=== PATIENT | male | born 1935 | race Two or more races ===

== ENCOUNTER 2016-11-17 21:17 | Inpatient (IN) | payer MEDICARE, MEDICAID ==
[~2016-11-17] VITALS: Ht 165.1 cm; Wt 55.3 kg
[~2016-11-17 21:17] MED LIST: DICL50TA9 PO; DIVA125T3 PO; LISI-603 PO; LORA10TA68 PO; MEMA10TA PO; MIRT15TA PO
--- NOTE | 2016-11-17 22:08 | NUR ---
PT LEAH PA FROM [facility] FOR PAINFUL PELVIC MASS. PT AO TO NAME. GEORGIAN SPEAKING. PER EMS BASELINE PT CONFUSED. RR EVEN AND UNLABORED. NO SOB NOTED. NAD NOTED. NO NVD AT THIS TIME. PT GOWNED AND PLACED ON MONITOR WAITING FOR MD MENA.
--- NOTE | 2016-11-17 22:21 | NUR ---
FAMILY AT BEDSIDE TO TRANSLATE.
--- NOTE | 2016-11-17 22:22 | NUR ---
DR. NORIEGA AT BEDSIDE FOR EVAL.
--- NOTE | 2016-11-17 22:25 | NUR ---
CALLED RADIOLOGY TO PAGE US TECH
[2016-11-17] MEDS ORDERED: IV NS 0.9% 500 ML BAG IV ONE (22:30)
[2016-11-17] MEDS ORDERED: IV SET PRIMARY 1 EA INFUS.SET MC ONE (22:38)
[2016-11-17] MEDS ORDERED: IV NS 0.9% 500 ML IV ONE (22:38)
[2016-11-17 22:44] LABS: BASOPHILS % (AUTO) 0.5 % (0.0-2.0); EOSINOPHILS % (AUTO) 0.3 % (0.0-6.0); HEMATOCRIT 39 % (39-51); HEMOGLOBIN 13.1 g/dL (13.5-17.5); LYMPHOCYTES % (AUTO) 11.7 % (20.0-44.0); MEAN CORPUSCULAR HEMOGLOBIN 32 PG (26.0-33.0); MEAN CORPUSCULAR HGB CONC 34 g/dl (31.0-36.0); MEAN CORPUSCULAR VOLUME 94 fL (80-96); MONOCYTES # (AUTO) 0.6 /CMM (0.1-1.30); MONOCYTES % (AUTO) 6.9 % (2.0-12.0); NEUTROPHILS # (AUTO) 6.8 /CMM (1.8-8.9); NEUTROPHILS % (AUTO) 80.6 % (43.0-81.0); PLATELET COUNT (AUTO) 285 /CMM (150-450); RDW COEFFICIENT OF VARIATION 13.2 (11.5-15.0); RED BLOOD CELL COUNT(AUTO) 4.15 MIL/uL (4.5-6.0); WHITE BLOOD COUNT (AUTO) 8.4 K/uL (4.3-11.0)
[2016-11-17 22:55] LABS: CALCIUM, SERUM 8.9 mg/dL (8.5-10.1); CREATININE 0.7 mg/dL (0.6-1.3); POTASSIUM 3.7 mmol/L (3.5-5.1)
[2016-11-17 23:00] LABS: ALBUMIN 2.8 g/dL (3.4-5.0); BILIRUBIN,DIRECT 0.1 mg/dL (0.0-0.2); BILIRUBIN,TOTAL 0.6 mg/dL (0.2-1.0); TOTAL PROTEIN, SERUM 7.2 g/dL (6.4-8.2)
[2016-11-17] MEDS ORDERED: LIDOCAINE 2% JEL UROJET 10 ML MM ONE ×2 (23:00→23:30)
--- NOTE | 2016-11-17 23:15 | NUR ---
URINE COLLECTED. CALLED LAB FOR MACHINE I TRIMMER.
[2016-11-17 23:39] LABS: APPEARANCE,URINE CLEAR (CLEAR); BILIRUBIN,URINE NEGATIVE (NEGATIVE); BLOOD, URINE TRACE-INTA Ery/uL (NEGATIVE); COLOR,URINE YELLOW (YELLOW); KETONES,URINE NEGATIVE (NEGATIVE); LEUKOCYTE ESTERASE ,URINE NEGATIVE (NEGATIVE); NITRITE, URINE NEGATIVE (NEGATIVE); PH,URINE 7.5 (5.0-8.0); PROTEIN,URINE NEGATIVE (NEGATIVE); UGLUCOSE NEGATIVE (NEGATIVE)
[2016-11-17 23:46] LABS: ADD URINE CULTURE NO; BACTERIA,URINE None seen /HPF (None Seen); RBC,URINE 0-2 /HPF (0-2); SQUAMOUS EPITHELIAL CELL,UR Few /HPF (None Seen); WBC,URINE 0-2 /HPF (0-3)
--- NOTE | 2016-11-18 00:43 | NUR ---
ABBE AT BEDSIDE
[2016-11-18] MEDS ORDERED: MORPHINE SULFATE INJ 4 MG/ML DISP.SYRIN ONE (01:32)
[2016-11-18] MEDS ORDERED: ONDANSETRON HCL/PF 4 MG/2 ML VIAL ONE (01:32)
--- NOTE | 2016-11-18 01:55 | NUR ---
PT TO CT.
[2016-11-18] MEDS ORDERED: ONDANSETRON HCL/PF 4 MG/2 ML VIAL IV ONE (02:00)
[2016-11-18] MEDS ORDERED: MORPHINE SULFATE INJ 2 MG/ML DISP.SYRIN IV ONE (02:00)
--- NOTE | 2016-11-18 02:10 | NUR ---
PT RETURNED FROM CT
[2016-11-18] MEDS ORDERED: FLAGYL/NS RTU 500 MG/100 ML PIGGYBACK IV ONE (03:00)
[2016-11-18] MEDS ORDERED: CIPROFLOXACIN IV RTU 400 MG in PREMIX 1 EA IV SCH (03:00)
--- NOTE | 2016-11-18 03:04 | NUR ---
CALLED LAB FOR BLOOD CX AND LACTIC ACID DRAW.
--- NOTE | 2016-11-18 03:12 | NUR ---
DR. NORIEGA SPEAKING TO DR. RUEDA UROLOGIST.
[2016-11-18] MEDS ORDERED: CIPROFLOXACIN IV RTU 200 ML IV ONE (03:15)
[2016-11-18] MEDS ORDERED: IV SET PRIMARY PUMP SET 1 EA INFUS.SET MC ONE ×2 (03:15→08:47)
--- NOTE | 2016-11-18 03:15 | NUR ---
LAB AT BEDSIDE FOR BLOOD CULTURE.
--- NOTE | 2016-11-18 03:48 | NUR ---
DR. NORIEGA SPEAKING TO DR. MAYFIELD REGARDING ADMISSION.
[2016-11-18] MEDS ORDERED: CIPROFLOXACIN IV RTU 200 MG in PREMIX 1 EA IV SCH ×2 (04:00→17:00)
[2016-11-18] MEDS ORDERED: ONDANSETRON HCL/PF 4 MG/2 ML VIAL IVP PRN (04:00)
[2016-11-18] MEDS ORDERED: MAGNESIUM HYDROXIDE 30 ML UDC PO PRN (04:00)
[2016-11-18] MEDS ORDERED: HYDROCODONE/APAP 5/325MG 1 EACH TABLET PO PRN (04:00)
[2016-11-18] MEDS ORDERED: Z GUARD REMEDY 2 OZ OINT TP PRN (04:00)
[2016-11-18] MEDS ORDERED: MAG HYDROX/AL HYDROX/SIMETH 30 ML UDC PO PRN (04:00)
--- NOTE | 2016-11-18 04:10 | NUR ---
RN NOTE RECEIVED REPORT FROM PRODUCTION TEAM MEMBERJANIS VASQUEZ FOR CONTINUITY OF CARE. AWAITING PT.
--- NOTE | 2016-11-18 04:16 | NUR ---
PT TRANSFERED PER ACLS PROTOCOL.
--- NOTE | 2016-11-18 04:30 | NUR ---
RN INITIAL NOTE RECEIVED PT IN NO ACUTE DISTRESS. PT IS A/O X 1 WITH PERIODS OF CONFUSION. PT IS ON RA AND TOLERATING WELL WITH O2 SAT @ 98%. PT IS C/O ABDOMINAL PAIN. PAIN MANAGEMENT INITIATED AND IMPLEMENTED. PT NOT C/O ANY SOB OR DIFFICULTY BREATHING. PT HAS LFA 18G THAT IS CLEAN DRY INTACT AND PATENT WITH SALINE FLUSH. IV IS SALINE LOCKED. BED IN LOW LOCK POSITION WITH RIALS UP X 2. CALL LIGHT WITH IN REACH AND ALL SAFETY MEASURES ENSURED AND CARRIED OUT. WILL CONTINUE TO MONITOR PT.
[2016-11-18] MEDS ORDERED: MORPHINE SULFATE INJ 2 MG/ML DISP.SYRIN ONE ×2 (04:42→19:37)
[2016-11-18 04:47] VITALS: BP 164/80
[2016-11-18] MEDS: MORPHINE SULFATE INJ 2 MG/ML DISP.SYRIN IV PRN ×3 (04:48→19:41)
--- NOTE | 2016-11-18 07:20 | NUR ---
RN NOTE RECEIVED TELEPHONE ORDERS TO GET CONSENT FORMS FOR REPAIR OF INCARCERATED RIGHT INGUINAL HERNIA AND POSSIBLE BOWEL RESECTION. READ BACK PERFORMED AND ORDERS PLACED IN PT CHART. Addendum: 11/18/16 at 0737 by RIRI WANG RN RECEIVED TELEPHONE ORDERS FROM DR STARKEY.
[2016-11-18] MEDS: PANTOPRAZOLE 40 MG TABLET.DR PO SCH (07:30)
[2016-11-18] MEDS ORDERED: DICLOFENAC SODIUM 25 MG TABLET.DR PO PRN (07:30)
--- NOTE | 2016-11-18 07:39 | NUR ---
RN CLOSING NOTE PT REMAINS IN NO ACUTE DISTRESS IN BED. PT DID NOT HAVE ANY SIGNIFICANT CHANGE IN CONDITION DURING SHIFT. WILL ENDORSE REPORT TO AM RN FOR CONTINUITY OF CARE. ALL NEEDS MET ALL ORDERS CARRIED OUT.
--- NOTE | 2016-11-18 07:59 | NUR ---
RN INITIAL NOTES RECEIVED PT ON BED, ON ROOM AIR, NO SOB, AOX1, TRYING TO PULL OUT LFA 20 G IV ACCESS, TRYING TO GET OUT OF BED, SCHEDULED FO SURGERY AT 100 AM, PT NPO, IV HL, NO DISTRESS AT THIS TIME, CALLED HIS STACY TO OBTAIN CONSENT FOR SURGERY, SHE CONSENTED, SIDE RAILS UP X4, SITTER AT BEDSIDE, BED ALARM ON, CALL LIGHT WITHIN REACH WILL CONTINUE TO MONITOR.
[2016-11-18 08:00] VITALS: BP 160/64
[2016-11-18] MEDS ORDERED: SECONDARY IV SET 1 EA INFUS.SET MC ONE ×2 (08:47→16:20)
[2016-11-18] MEDS: LISINOPRIL (20MG) 20 MG TABLET PO SCH (09:00)
[2016-11-18] MEDS: LORATADINE 10 MG TABLET PO SCH (09:00)
[2016-11-18] MEDS: MEMANTINE HCL 5 MG TABLET PO SCH (09:00)
[2016-11-18] MEDS ORDERED: DIVALPROEX SODIUM 125 MG TABLET.DR PO SCH (09:00)
[2016-11-18] MEDS: DIVALPROEX SODIUM 250 MG TABLET.DR PO SCH ×3 (09:00→17:48)
[2016-11-18] MEDS: IV NS 0.9% 1,000 ML IV SCH ×3 (09:03→23:44)
[2016-11-18 09:05] LABS: INR 1.04 (0.87-1.13); PROTHROMBIN TIME 11.1 SECS (9.5-12.7)
[2016-11-18] MEDS: METRONIDAZOLE 500MG/ NS 100ML 500 MG in PREMIX 1 EA IV SCH ×3 (09:06→23:44)
[2016-11-18] MEDS ORDERED: MIDAZOLAM HCL 2 MG/2ML VIAL ONE (09:43)
[2016-11-18] MEDS ORDERED: ROCURONIUM BROMIDE 50 MG/5 ML ONE (09:43)
[2016-11-18] MEDS ORDERED: FENTANYL PF 100MCG/2ML AMPUL ONE ×2 (09:43→10:35)
--- NOTE | 2016-11-18 10:06 | NUR ---
RN NOTE PT TAKEN TO SURGERY BY OR PERSONNEL, CHECK LIST DONE.
[2016-11-18 12:00] VITALS: BP 161/75
[2016-11-18] MEDS ORDERED: BUPIVACAINE 0.25% 75 MG/30 ML VIAL ONE (12:00)
--- NOTE | 2016-11-18 12:00 | NUR ---
RN notes pt arrived from or, in stable condition, sleepy, o2 sat 95%, dressing -r lower abdomen, dressing c/d/i, no bleeding noted. denies pain. bed alarm on, bed in low and locked position, dvt pumps on, call ight within reach, will continue to monitor.
[2016-11-18 12:15] VITALS: BP 151/70
[2016-11-18 16:00] VITALS: BP 148/78
[2016-11-18] MEDS ORDERED: hydrALAZINE HCL 25 MG TABLET PO PRN (16:30)
[2016-11-18] MEDS: ANCEF 1 GM/50 ML D5W IV SCH ×4 (16:39→21:50)
[2016-11-18] MEDS ORDERED: ANCEF 1 GM/50 ML D5W IV SCH ×2 (18:00)
--- NOTE | 2016-11-18 19:00 | NUR ---
RN NOTES PT REMAINED STABLE, STAYED COUPLE HOURS WITH PT, DRESSING WAS SATURATED BY THE END OF SHIFT, DRESSING HAS BEEN CHANGED, PT ATTEMPTED TO GET OUT BED AND TAKE OFF DVT PUMPS OFF, ATTEMPTED REMOVE IV LINE, ORIENTED AND REINFORCED SEVERAL TIMES, SAFETY MAINTAINED, BED ALARM ON, CALL LIGHT WITHIN REACH, WILL ENDORSE TO CROWN ATTACHER NURSE.
--- NOTE | 2016-11-18 19:31 | NUR ---
rn:ms: pt extremely confused, trying to get out of bed countless times despite being instructed not to get out of bed. pt very restless and pulling iv. orders received for bilateral soft wrist restraints. attempted to give prn pain medications but not listed as medication in pyxis. will notify charge nurse. per dayshift no sitter available. pt extremely high fall risk. nurse sitting at bedside for pt safety.
[2016-11-18 20:00] VITALS: BP 126/66
--- NOTE | 2016-11-18 20:00 | NUR ---
RN;MS: PT REMAINS RESTLESS DESPITE PAIN MEDS. HAD CITIZEN OF [place] SPEAKING SHIP CEILER FOR TRANSLATION TO EXPLAIN THAT PT MUST STAY IN BED. PT CONTINUES TO ATTEMPT TO GET OUT OF BED AND PULL IV. BILATERAL SOFT WRIST RESTRAINTS IN PLACE. FALL PRECAUTIONS IN PLACE.
--- NOTE | 2016-11-18 21:07 | NUR ---
MS: PT CONTINUES TO BE EXTREMELY RESTLESS, KICKING LEGS OUT. ATTEMPTING TO REMOVE ALL LINES AND TUBES. ORDERS RECEIVED FOR ATIVAN 1MG IV. FALL PRECAUTIONS IN PLACE. WILL CONTINUE TO MONITOR CLOSELY.
[2016-11-18] MEDS ORDERED: LORAZEPAM INJ 2 MG/ML VIAL ONE (21:13)
[2016-11-18] MEDS ORDERED: LORAZEPAM INJ 2 MG/ML VIAL IV ONE (21:30)
[2016-11-18] MEDS: MIRTAZAPINE 15 MG TABLET PO SCH (21:50)
--- NOTE | 2016-11-18 21:54 | NUR ---
RN:MS: PT GIVEN ATIVAN 1 MG, WITNESS AARON FOR WASTE. PT RESTING COMFORTABLY. HELD REMERON PT IS SLEEPING. UPDATED REGARDING PT RESTLESSNESS. PER PT BECOMES CONFUSED AND RESTLESS SOMETIMES. NO ACUTE DISTRESS. ABD DRESSING WITH MINIMAL SANGUENOUS BLOOD. PT GIVEN BED BATH. VSS. WILL CONTINUE TO MONITOR CLOSELY.
[2016-11-18] MEDS ORDERED: ZOLPIDEM TARTRATE 5 MG TABLET PO PRN (22:00)
--- NOTE | 2016-11-19 00:06 | NUR ---
RN:MS: PT DRESSING WITH MOD SEROSANGUENOUS FLUID, BLOOD MARKED. WILL CONTINUE TO MONITOR.
[2016-11-19 04:00] VITALS: BP 129/71
[2016-11-19] MEDS: IV NS 0.9% 1,000 ML IV SCH ×2 (05:33→20:16)
[2016-11-19] MEDS: ANCEF 1 GM/50 ML D5W IV SCH ×2 (05:33)
--- NOTE | 2016-11-19 07:00 | NUR ---
received pt in bed. no c/o pain,no sob.no s/s of distress.breathing on room.no c/o pain ,no sob,no s/s of distress.i.v site cdi and patent.will continue to monitor for changes.
[2016-11-19 07:24] LABS: BASOPHILS % (AUTO) 0.1 % (0.0-2.0); HEMATOCRIT 38 % (39-51); HEMOGLOBIN 12.8 g/dL (13.5-17.5); LYMPHOCYTES % (AUTO) 7.9 % (20.0-44.0); MEAN CORPUSCULAR HEMOGLOBIN 32 PG (26.0-33.0); MEAN CORPUSCULAR HGB CONC 33 g/dl (31.0-36.0); MEAN CORPUSCULAR VOLUME 95 fL (80-96); MONOCYTES % (AUTO) 8.3 % (2.0-12.0); NEUTROPHILS # (AUTO) 10.3 /CMM (1.8-8.9); NEUTROPHILS % (AUTO) 83.7 % (43.0-81.0); PLATELET COUNT (AUTO) 265 /CMM (150-450); RDW COEFFICIENT OF VARIATION 13.4 (11.5-15.0); RED BLOOD CELL COUNT(AUTO) 4.02 MIL/uL (4.5-6.0); WHITE BLOOD COUNT (AUTO) 12.3 K/uL (4.3-11.0)
[2016-11-19 07:48] LABS: CALCIUM, SERUM 7.9 mg/dL (8.5-10.1); CREATININE 0.8 mg/dL (0.6-1.3); MAGNESIUM 1.7 mg/dL (1.8-2.4); PHOSPHORUS 2.6 mg/dL (2.5-4.9); POTASSIUM 3.4 mmol/L (3.5-5.1)
[2016-11-19] MEDS: MEMANTINE HCL 5 MG TABLET PO SCH (09:22)
[2016-11-19] MEDS: LISINOPRIL (20MG) 20 MG TABLET PO SCH (09:23)
[2016-11-19] MEDS: PANTOPRAZOLE 40 MG TABLET.DR PO SCH (09:23)
[2016-11-19] MEDS: LORATADINE 10 MG TABLET PO SCH (09:23)
[2016-11-19] MEDS: DIVALPROEX SODIUM 250 MG TABLET.DR PO SCH ×3 (09:23→16:40)
[2016-11-19 11:00] VITALS: BP 143/71
[2016-11-19] MEDS ORDERED: POTASSIUM CHLORIDE 20 MEQ TAB.PRT.SR PO ONE (11:00)
[2016-11-19] MEDS ORDERED: SECONDARY IV SET 1 EA INFUS.SET MC ONE (11:29)
[2016-11-19] MEDS: Magnesium 1GM/D5W 100ML PREMIX 100 ML IV SCH ×2 (11:35→12:51)
[2016-11-19 12:00] VITALS: BP 143/71
[2016-11-19] MEDS ORDERED: MORPHINE SULFATE INJ 2 MG/ML DISP.SYRIN IV PRN (13:00)
[2016-11-19] MEDS: ACETAMINOPHEN 325 MG TABLET PO PRN (15:59)
[2016-11-19] MEDS: LORAZEPAM INJ 2 MG/ML VIAL IV PRN (17:47)
[2016-11-19 20:00] VITALS: BP 137/68
[2016-11-19] MEDS: MIRTAZAPINE 15 MG TABLET PO SCH (21:17)
[2016-11-20] VITALS: BP 136/64
[2016-11-20 04:00] VITALS: BP 126/65
[2016-11-20] MEDS: IV NS 0.9% 1,000 ML IV SCH ×3 (05:21→19:41)
[2016-11-20 06:32] LABS: HEMATOCRIT 43 % (39-51); HEMOGLOBIN 13.9 g/dL (13.5-17.5); LYMPHOCYTES # (AUTO) 0.5 /CMM (0.8-4.8); LYMPHOCYTES % (AUTO) 3.4 % (20.0-44.0); MEAN CORPUSCULAR HEMOGLOBIN 31 PG (26.0-33.0); MEAN CORPUSCULAR HGB CONC 33 g/dl (31.0-36.0); MEAN CORPUSCULAR VOLUME 95 fL (80-96); MONOCYTES # (AUTO) 0.7 /CMM (0.1-1.30); MONOCYTES % (AUTO) 4.5 % (2.0-12.0); NEUTROPHILS # (AUTO) 13.4 /CMM (1.8-8.9); NEUTROPHILS % (AUTO) 92.1 % (43.0-81.0); PLATELET COUNT (AUTO) 276 /CMM (150-450); RDW COEFFICIENT OF VARIATION 13.7 (11.5-15.0); RED BLOOD CELL COUNT(AUTO) 4.47 MIL/uL (4.5-6.0); WHITE BLOOD COUNT (AUTO) 14.5 K/uL (4.3-11.0)
[2016-11-20 06:37] LABS: CALCIUM, SERUM 8.3 mg/dL (8.5-10.1); CREATININE 0.8 mg/dL (0.6-1.3); MAGNESIUM 2.1 mg/dL (1.8-2.4); PHOSPHORUS 2.9 mg/dL (2.5-4.9); POTASSIUM 3.3 mmol/L (3.5-5.1)
[2016-11-20] MEDS: PANTOPRAZOLE 40 MG TABLET.DR PO SCH (07:30)
--- NOTE | 2016-11-20 07:30 | NUR ---
RN MS INITIAL NOTES RECEIVED REPORT AND PT FROM PM NURSE, A&O X1 RWANDAN SPEAKING DROWSY BUT AROUSABLE, ON 3L NC SAT ABOVE 97%, RT FA 22 G INTACT NO S.S OF INFILTRATION RUNNING IV FLUIDS, ALL NEEDS MET,ALL SAFETY MEASURES INITIATED, SIDE RAILS X2, BED LOW AND LOCKED, CALL LIGHT WITHIN REACH, WILL CONTINUE TO MONITOR.
[2016-11-20 08:00] VITALS: BP 137/77
[2016-11-20] MEDS: DIVALPROEX SODIUM 250 MG TABLET.DR PO SCH ×3 (09:00→16:45)
[2016-11-20] MEDS: LORATADINE 10 MG TABLET PO SCH (09:00)
[2016-11-20] MEDS: MEMANTINE HCL 5 MG TABLET PO SCH (09:00)
[2016-11-20] MEDS: LISINOPRIL (20MG) 20 MG TABLET PO SCH (09:00)
--- NOTE | 2016-11-20 11:06 | NUR ---
Pt was combative yesterday. Pt was given ativan. Pt is lethargic and is not waking up. Nurse will let us know when we can try. As of now we are concerned if pt drinks the contrast he might aspirate.
[2016-11-20] MEDS ORDERED: POTASSIUM CHLORIDE 10 MEQ TABLET.SA PO ONE (11:30)
[2016-11-20] MEDS: ENOXAPARIN SODIUM 40 MG/0.4 ML DISP.SYRIN SQ SCH (14:00)
[2016-11-20] MEDS ORDERED: POTASSIUM CHLORIDE 20 MEQ POWDER PACKET PO ONE (14:00)
[2016-11-20] MEDS: METRONIDAZOLE 500MG/ NS 100ML 500 MG in PREMIX 1 EA IV SCH ×2 (14:00→21:08)
[2016-11-20] MEDS ORDERED: DIATR MEGLU/DIATRIZOATE SODIUM 120 ML BOTTLE (GASTROGRAPHIN) ONE (14:16)
--- NOTE | 2016-11-20 15:09 | NUR ---
RN MS NOTES PT COULD NOT TOLERATE FLUID FOR SMALL BOWEL FOLLOW TROUGH, TECH STATED WILL NEED TO HAVE NG TUBE PLACED IN ORDER TO HAVE TEST COMPLETED.
[2016-11-20 16:00] VITALS: BP 140/55
--- NOTE | 2016-11-20 18:14 | NUR ---
RN MS NOTES PRE OP PAPERWORK COMPLETE AND SIGNED WITH CONSENT FOR PROCEDURE, BLOOD AND ANESTHESIA DONE BY STACY.
--- NOTE | 2016-11-20 18:31 | NUR ---
RN MS ENDING NOTES PT RESTING NO ACUTE CHANGES NOTED AT THIS TIME, PT UNABLE TO SWALLOW MEDS WHOLE OR CRUSHED AT THIS TIME, ALL NEEDS MET, PT STABLE TO ENDORSE TO PM NURSE.
--- NOTE | 2016-11-20 19:30 | NUR ---
MS INVENTORY ASSOCIATE NOTE RECEIVED PT RESTING IN BED WITH AT BEDSIDE. A/O X1 FRENCH SPEAKING, CONFUSED. PT ON ROOM AIR AND SATING WELL. IV R AND L FA INTACT AND FLUSHING WELL. BED IN LOWEST POSITION AND LOCKED. BED ALARM ON AND ALL SAFETY MEASURES IN PLACE. WILL BE NPO AT MIDNIGHT FAMILY AND PATIENT AWARE. WILL CONTINUE TO MONITOR.
[2016-11-20] MEDS ORDERED: IV NS 0.9% 1,000 ML ONE (19:33)
[2016-11-20] MEDS: LORAZEPAM INJ 2 MG/ML VIAL IV PRN (19:55)
[2016-11-20 20:00] VITALS: BP 155/80
--- NOTE | 2016-11-20 20:40 | NUR ---
MS RN NOTE SPOKE WITH DR CHAN AND ASKED FOR SMALL BOWEL XRAY RESULTS. RESULTS STILL PENDING, ASKED FOR RADIOLOGY TO INFORM HIM DIRECTLY OF RESULTS PENDING SURGERY IN THE AM. ORDERS NOTED AND CARRIED OUT.
[2016-11-20] MEDS: MIRTAZAPINE 15 MG TABLET PO SCH (21:08)
--- NOTE | 2016-11-20 21:32 | NUR ---
ASSISTANT HALL DIRECTOR NOTE SPOKE WITH DR CHAN REGARDING PT SURGERY IN THE AM. CANCELED SURGERY IN THE MORNING AND NPO STATUS. ORDER FOR PT TO CONTINUE CLEAR LIQUID DIET. ORDERS NOTED AND CARRIED OUT.
[2016-11-21 04:00] VITALS: BP 160/86
[2016-11-21] MEDS: METRONIDAZOLE 500MG/ NS 100ML 500 MG in PREMIX 1 EA IV SCH (04:02)
--- NOTE | 2016-11-21 06:30 | NUR ---
MS RN CLOSING NOTE PT REMAINED IN STABLE CONDITION DURING SHIFT. ALL NEEDS ATTENDED TO. PT REMAINS ON BILATERAL SOFT WRIST RESTRAINTS, WITHOUT ANY DISCOLORATION, PULSES PALPABLE BILATERALLY, CAP REFILL INTACT, SKIN INTACT. BED ALARM ON AND IN LOWEST POSITION. ALL SAFETY MEASURES IN PLACE. WILL ENDORSE TO NEXT SHIFT FOR PRASANTH.
[2016-11-21 06:41] LABS: BASOPHILS # (AUTO) 0.1 /CMM (0.0-0.2); BASOPHILS % (AUTO) 0.5 % (0.0-2.0); EOSINOPHILS # (AUTO) 0.1 /CMM (0.0-0.7); EOSINOPHILS % (AUTO) 0.7 % (0.0-6.0); HEMATOCRIT 37 % (39-51); HEMOGLOBIN 12.1 g/dL (13.5-17.5); LYMPHOCYTES # (AUTO) 0.7 /CMM (0.8-4.8); LYMPHOCYTES % (AUTO) 5.6 % (20.0-44.0); MEAN CORPUSCULAR HEMOGLOBIN 31 PG (26.0-33.0); MEAN CORPUSCULAR HGB CONC 33 g/dl (31.0-36.0); MEAN CORPUSCULAR VOLUME 96 fL (80-96); MONOCYTES % (AUTO) 8.1 % (2.0-12.0); NEUTROPHILS # (AUTO) 10.4 /CMM (1.8-8.9); NEUTROPHILS % (AUTO) 85.1 % (43.0-81.0); PLATELET COUNT (AUTO) 274 /CMM (150-450); RDW COEFFICIENT OF VARIATION 13.4 (11.5-15.0); RED BLOOD CELL COUNT(AUTO) 3.86 MIL/uL (4.5-6.0); WHITE BLOOD COUNT (AUTO) 12.2 K/uL (4.3-11.0)
[2016-11-21 07:23] LABS: CALCIUM, SERUM 7.7 mg/dL (8.5-10.1); CREATININE 0.7 mg/dL (0.6-1.3); MAGNESIUM 1.9 mg/dL (1.8-2.4); POTASSIUM 3.1 mmol/L (3.5-5.1)
--- NOTE | 2016-11-21 07:30 | NUR ---
RN INTIAL NOTE RECEIVED PT FROM PM SHIFT A/O X1 BURMESE SPEAKING. RESTING COMFORTABLY. NC 2L PT SPO2 98% TOLERATING WELL. PT NOT IN ACUTE SOB. IV RFA 22G NS@100 ML/HR FLUSHED AND PATENT. PT TURNED AND REPOSITIONED FOR SAFETY. PT KEPT WARM AND DRY. WILL CONTINUE TO MONITOR CLOSELY.
[2016-11-21 08:00] VITALS: BP_SYST 160; BP_SYST 162; BP_DIAS 78
[2016-11-21] MEDS: LORATADINE 10 MG TABLET PO SCH (08:58)
[2016-11-21] MEDS: DIVALPROEX SODIUM 250 MG TABLET.DR PO SCH ×3 (08:58→17:39)
[2016-11-21] MEDS: MEMANTINE HCL 5 MG TABLET PO SCH (08:59)
[2016-11-21] MEDS: PANTOPRAZOLE 40 MG TABLET.DR PO SCH (08:59)
[2016-11-21] MEDS: ENOXAPARIN SODIUM 40 MG/0.4 ML DISP.SYRIN SQ SCH (09:12)
[2016-11-21] MEDS: LISINOPRIL (20MG) 20 MG TABLET PO SCH (09:27)
[2016-11-21] MEDS: POTASSIUM CHLORIDE 20 MEQ POWDER PACKET PO ONE ×2 (10:00→10:51)
--- NOTE | 2016-11-21 11:14 | NUR ---
RN NOTE PT SPITTING OUT MEDICATION CALL TO TRANSLATE. PT STILL REFUSING MEDICATION. CALLED ALEXA VINSON N.P. WILL CHANGE MEDICATIONS TO IV.
--- NOTE | 2016-11-21 11:35 | NUR ---
RN NOTE PT UNABLE TO DO PHYSICAL THERAPY DUE TO RESTLESSNESS.
[2016-11-21] MEDS: LORAZEPAM INJ 2 MG/ML VIAL IV PRN ×2 (12:13→22:38)
[2016-11-21] MEDS: IV NS 0.9% 1,000 ML IV SCH ×2 (12:23→21:45)
[2016-11-21] MEDS: METRONIDAZOLE 500 MG TABLET PO SCH ×2 (13:00→21:45)
--- NOTE | 2016-11-21 13:15 | NUR ---
RN NOTE ALEXA VINSON MADE ROUNDS EXPLAINED TO HER PT SPITTING MEDICATION AND IF MEDICATIONS CAN BE CHANGED TO IV. PER ALEXA PT WILL BE POSSIBLE DC TOMORROW AND MEDICATIONS DID NOT NEED TO BE CHANGED SINCE PT IS MED SURG. SOFT MECHAN DIET ALEXA WANT TO SEE IF PT TOLERATES FOOD BEFORE BEING DC.
[2016-11-21] MEDS ORDERED: NEUTRA PHOS 1 POWD.PACKET PO ONE (13:30)
[2016-11-21 16:00] VITALS: BP 157/84
--- NOTE | 2016-11-21 19:50 | NUR ---
RN NOTES PT AWAKE ON BED WATCHING TV AOX1 GAMBIAN SPEAKING CONFUSED. SATING 98% ON O2 2LPM VIA NC. WITH EPISODE OF TRYING TO GET OUT ON BED. BILATERAL SOFT WRIST RESTRAINT KEPT IN PLACED. CIRCULATION CHECKED. CAPILLARY REFILL CHECKED. O FACIAL COMPLAINED OF PAIN. SITE ON RFA G 22 INTACT AND PATENT RUNNING WITH NS @ 100CC/HR. KEPT PT CLEAN AND DRY. BED IN LOCKED AND IN LOWEST POSSIBLE POSITION. BED ALARM ON. WILL CONTINUE TO MONITOR.
--- NOTE | 2016-11-21 19:59 | NUR ---
RN CLOSING NOTE PT V/S STABLE THROUGH SHIFT. PT RESTLESS THROUGHOUT SHIFT REORIENTATION IMPLEMENTED. PT HAS DECREASE OF APPETITE EATING 15-20% OF MEALS. CAME TO FEED PT AT LUNCH AND IS AWARE OF ISSUE SHE ATTEMPTED TO FEED HIM AND SPIT OUT FOOD.NO ACUTE C/O SOB IV NS @ 100 ML/HR FLUSHED AND PATENT. WRIST STRAITS CHECK. PT DID NOT TAKE SOME AM MEDICATIONS. IN THE AFTERNOON PT TOOK MEDICATIONS. ALL SAFETY MEASURES IN PLACE. PT KEEP WARM AND DRY. ENDORSED TO PM SHIFT FOR PRASANTH.
[2016-11-21 20:00] VITALS: BP 157/81
[2016-11-21] MEDS: MIRTAZAPINE 15 MG TABLET PO SCH (21:44)
[2016-11-22 04:00] VITALS: BP 159/74
[2016-11-22] MEDS: METRONIDAZOLE 500 MG TABLET PO SCH ×2 (05:10→11:57)
[2016-11-22 06:52] LABS: BASOPHILS % (AUTO) 0.2 % (0.0-2.0); EOSINOPHILS # (AUTO) 0.2 /CMM (0.0-0.7); EOSINOPHILS % (AUTO) 2.6 % (0.0-6.0); HEMATOCRIT 33 % (39-51); LYMPHOCYTES # (AUTO) 0.9 /CMM (0.8-4.8); LYMPHOCYTES % (AUTO) 12.9 % (20.0-44.0); MEAN CORPUSCULAR HEMOGLOBIN 32 PG (26.0-33.0); MEAN CORPUSCULAR HGB CONC 33 g/dl (31.0-36.0); MEAN CORPUSCULAR VOLUME 95 fL (80-96); MONOCYTES # (AUTO) 0.6 /CMM (0.1-1.30); MONOCYTES % (AUTO) 9.4 % (2.0-12.0); NEUTROPHILS # (AUTO) 5.1 /CMM (1.8-8.9); NEUTROPHILS % (AUTO) 74.9 % (43.0-81.0); PLATELET COUNT (AUTO) 250 /CMM (150-450); RDW COEFFICIENT OF VARIATION 13.1 (11.5-15.0); RED BLOOD CELL COUNT(AUTO) 3.47 MIL/uL (4.5-6.0); WHITE BLOOD COUNT (AUTO) 6.8 K/uL (4.3-11.0)
--- NOTE | 2016-11-22 07:04 | NUR ---
RN NOTES PT ASLEEP WELL ABOUT 8 HOURS NO SOB OR ACUTE RESP DISTRESS. AFEBRILE. KEPT PT CLEAN AND DRY. NON COMPLIANT WITH MEDICINE UNABLE TO UNDERSTAND RISK AND BENEFITS WHILE EXPLAINING ABOUT THE MEDICINE AND ATB. KEPT PT CLEAN AND COMFORTABLE IN BED. WILL ENDORSED CONTINUITY OF CARE
--- NOTE | 2016-11-22 07:15 | NUR ---
RN MS INITIAL NOTES RECEIVED REPORT FROM PM NURSE, PT RESTING IN BED, A&O X1-2 AZERBAIJANI SPEAKING VERY CONFUSED, NO SOB OR ACUTE DISTRESS AT THIS TIME, ON SOFT BILATERAL WRIST RESTRAINTS, ON 2L NC SAT ABOVE 97%, RT FA 22 G INTACT PATENT NO S/S OF INFILTRATION NOTED, ALL NEEDS MET, ALL SAFETY MEASURES INITIATED, SIDE RAILS X2, BED LOW AND LOCKED, CALL LIGHT WITHIN REACH, WILL CONTINUE TO MONITOR.
[2016-11-22 07:16] LABS: CALCIUM, SERUM 7.4 mg/dL (8.5-10.1); CREATININE 0.6 mg/dL (0.6-1.3)
[2016-11-22 07:17] LABS: PHOSPHORUS 2.2 mg/dL (2.5-4.9)
[2016-11-22] MEDS: PANTOPRAZOLE 40 MG TABLET.DR PO SCH (07:30)
[2016-11-22 07:42] LABS: POTASSIUM 2.8 mmol/L (3.5-5.1)
[2016-11-22 08:00] VITALS: BP 152/71
[2016-11-22] MEDS: DIVALPROEX SODIUM 250 MG TABLET.DR PO SCH ×2 (08:14→11:57)
[2016-11-22] MEDS: MEMANTINE HCL 5 MG TABLET PO SCH (08:14)
[2016-11-22] MEDS: LORATADINE 10 MG TABLET PO SCH (08:14)
[2016-11-22] MEDS: IV NS 0.9% 1,000 ML IV SCH (08:49)
[2016-11-22] MEDS: ENOXAPARIN SODIUM 40 MG/0.4 ML DISP.SYRIN SQ SCH (08:50)
--- NOTE | 2016-11-22 09:00 | NUR ---
RN MS NOTES PT SPITS OUT ALL ORAL MEDS, SPEAKING IN MALIAN AND UNABLE TO UNDERSTAND AT THIS TIME, WILL NEED TO BE AT BEDSIDE.
[2016-11-22] MEDS: POTASSIUM CHLORIDE 20 MEQ TAB.PRT.SR PO SCH ×3 (10:36→12:30)
[2016-11-22] MEDS: ACETAMINOPHEN 325 MG TABLET PO PRN (10:36)
[2016-11-22] MEDS ORDERED: QUETIAPINE FUMARATE 25 MG TABLET PO PRN (12:00)
[2016-11-22] MEDS ORDERED: K PHOS NEUTRAL 250 MG TABLET PO ONE (13:00)
[2016-11-22] MEDS ORDERED: METR500T PO (14:02)
[2016-11-22] MEDS ORDERED: DIVA250T4 PO (14:02)
[2016-11-22] MEDS ORDERED: QUET25TA PO (14:02)
[2016-11-22] MEDS ORDERED: PANT40TA2 PO (14:02)
[2016-11-22] MEDS ORDERED: ENOX40DI SQ (14:02)
[2016-11-22] MEDS ORDERED: ACETAMINOPHEN 325 MG TABLET PO SCH (15:00)
--- NOTE | 2016-11-22 15:44 | NUR ---
RN MS ENDING NOTES PT LEFT VIA GURNEY WITH MED RESPONSE, SPOKE WITH MARY AND AWARE OF TRANSFER TO [facility], PT STABLE, EXIT CARE PROVIDED, PT VERY CONFUSED WITH DEMENTIA UNABLE TO COMPREHEND TEACHING, GAVE REPORT TO JUAN LUIS BRUCE AT [facility], ALL DUE MEDS GIVEN, ALL NEEDS MET, ID BAND REMOVED, RT FA IV SITE REMOVED NO INFILTRATION NOTED, PTS ENDING VITALS BP 135-68, HR 68, ON RA SAT ABOVE 96%, NO PAIN NOTED, PT EASILY AROUSED, NOT COMBATIVE OR GETTING OUT OF BED, WILL NOT NEED RESTRAINTS DURING DC TO FACILITY, NEW PRESCRIPTION PROVIDED AND FAXED TO FACILITY, WILL CONTINUE CARE, NO BELONGINGS NOTED WITH PT AT THIS TIME.
== END 2016-11-22 12:00 | DRG 350 ==
LOC: ER 21:24 → TELE-TD 11-18 04:09 → MEDSG1 11-18 04:45
PROVIDERS: ADMIT Family Medicine; ATTEND Internal Medicine
PROC: 0YU50JZ Supplement Right Inguinal Region with Synthetic Substitute, Open Approach (ICD-10-PCS; principal; 2016-11-18 10:00)
DX: K40.31 Unilateral inguinal hernia, with obstruction, without gangrene, recurrent (principal); G93.40 Encephalopathy, unspecified; E44.0 Moderate protein-calorie malnutrition; D63.8 Anemia in other chronic diseases classified elsewhere; E78.5 Hyperlipidemia, unspecified; F03.90 Unspecified dementia, unspecified severity, without behavioral disturbance, psychotic disturbance, mood disturbance, and anxiety; K21.9 Gastro-esophageal reflux disease without esophagitis; I10 Essential (primary) hypertension; K57.30 Diverticulosis of large intestine without perforation or abscess without bleeding; M19.90 Unspecified osteoarthritis, unspecified site; M47.816 Spondylosis without myelopathy or radiculopathy, lumbar region; N32.3 Diverticulum of bladder; N43.3 Hydrocele, unspecified
CPT/HCPCS: 36415; 71010-TC; 72192-TC; 74000-TC; 74250-TC; 76870-TC; 80048-TC; 80061-TC; 80076-TC; 81000-TC; 82306; 82962-TC; 83605-TC; 83735-TC; 84100-TC; 85025-TC; 85610-TC; 85730-TC; 86850-TC; 87040-TC; 87081-TC; 88302-TC; 88305-TC; 97001-TC; 97003-TC; 97116-TC; 97530-TC; A4216; A4606; A6402; A6403; C1781; J0690; J0744; J1100; J1650; J1885; J2060; J2250; J2270; J2405; J2704; J2710; J3010; J3475; J3490; J7030; J7040; J7060; Q9963; Z7610